=== PATIENT | female | born 1955 | race Caucasian/White ===

== ENCOUNTER 2020-04-25 09:56 | Day surgery (SDC) | payer MEDICARE ==
[~2020-04-25] VITALS: Ht 157.5 cm; Wt 77.1 kg
[2020-04-25 11:09] LABS: CALC OSMOLALITY 278 mosm/kg (275-300); CALCIUM 8.8 mg/dL (8.5-10.1); CARBON DIOXIDE 28.8 mmol/L (21.0-32.0); CHLORIDE - SERUM 104 mmol/L (98-107); CREATININE - SERUM 0.8 mg/dL (0.6-1.3); GLUCOSE 93 mg/dL (74-106); POTASSIUM - SERUM 3.9 mmol/L (3.5-5.1); SODIUM 140 mmol/L (136-145); UREA NITROGEN 12 mg/dL (7-18); eGFR NON AFRICAN AMERICAN 77 mL/min (90-120)
[2020-04-25 11:39] LABS: HEMATOCRIT 38.9 % (36.0-48.0); HEMOGLOBIN 12.8 g/dL (12-16); LYMPHOCYTES 31.4 % (15-50); MCH 31.6 pg (26.0-34.0); MCHC 32.9 g/dL (31.0-37.0); MEAN PLATELET VOLUME 8.4 fL (7.4-10.4); PLATELET COUNT 160 10x3/uL (130-400); RBC 4.05 10x6/uL (4.00-5.40); RDW 12.3 % (11.5-14.5); WBC 5.3 10x3/uL (4.8-10.8)
[2020-04-25] MEDS ORDERED: VICTOZA0.6 MG/0.1 SQ (12:37)
[2020-04-25 12:49] VITALS: BP 136/77; Ht 157.5 cm; Wt 77.1 kg
--- NOTE | 2020-04-25 18:23 | NUR ---
SURGERY TO BE RE-SCHEDULED AT A LATER TIME BECAUSE PT WISHES TO GO HOME SINCE SUGERY HAS BEEN DELAYED 7 HOURS NOW. IV D/C'D WITH CANNULA INTACT, AND PRESSURE HELD AND DRSG PLACED
== END 2020-04-25 18:25 | disposition home or self-care (01) ==
LOC: D.OPS 09:56
PROVIDERS: Anesthesiology; ATTEND Orthopaedic Surgery
DX: M25.532 Pain in left wrist (principal); S52.512A Displaced fracture of left radial styloid process, initial encounter for closed fracture; X58.XXXA Exposure to other specified factors, initial encounter; Z53.29 Procedure and treatment not carried out because of patient's decision for other reasons

== ENCOUNTER 2020-05-02 07:25 | Day surgery (SDC) | payer MEDICARE ==
[~2020-05-02] VITALS: Ht 157.5 cm; Wt 77.1 kg
[~2020-05-02 07:25] MED LIST: VICTOZA0.6 MG/0.1 SQ
[2020-05-02 08:19] LABS: HEMATOCRIT 40.3 % (36.0-48.0); HEMOGLOBIN 13.4 g/dL (12-16); MCH 31.7 pg (26.0-34.0); MCHC 33.3 g/dL (31.0-37.0); MCV 95.3 fL (80.0-100.0); MEAN PLATELET VOLUME 8.1 fL (7.4-10.4); RBC 4.23 10x6/uL (4.00-5.40); RDW 12.5 % (11.5-14.5); WBC 4.5 10x3/uL (4.8-10.8)
[2020-05-02 08:22] LABS: CALC OSMOLALITY 277 mosm/kg (275-300); CALCIUM 9.3 mg/dL (8.5-10.1); CARBON DIOXIDE 27.7 mmol/L (21.0-32.0); CHLORIDE - SERUM 105 mmol/L (98-107); CREATININE - SERUM 0.7 mg/dL (0.6-1.3); GLUCOSE 94 mg/dL (74-106); POTASSIUM - SERUM 3.8 mmol/L (3.5-5.1); SODIUM 139 mmol/L (136-145); UREA NITROGEN 13 mg/dL (7-18); eGFR NON AFRICAN AMERICAN 90 mL/min (90-120)
[2020-05-02] MEDS ORDERED: HYDROCODONE-AC1 EAC2 PO (09:35)
[2020-05-02 09:36] VITALS: Ht 157.5 cm; Wt 77.1 kg
--- NOTE | 2020-05-02 15:16 | NUR ---
1350 IV DC'D. CATHETER TIP INTACT. NO BLEEDING AT SITE. BANDAID APPLIED. 1402 PT IS DRESSED AND READY FOR DISCHARGE HOME. PT VOICES UNDERSTANDING OF THE DISCHARGE INSTRUCTIONS.
--- NOTE | 2020-05-06 21:31 | OP ---
PATIENT NAME: GAYLE MANN MEDICAL RECORD: [id number] :57 LOCATION:[facility] ADMISSION DATE: SURGEON: AGNES SANCHEZ MD DATE OF OPERATION: 05/02/2020 PREOPERATIVE DIAGNOSIS: Left distal radius fracture. POSTOPERATIVE DIAGNOSIS: Left distal radius fracture. PROCEDURE PERFORMED: ORIF of left distal radius (extraarticular). INDICATIONS FOR THE PROCEDURE: Ms. Mann is a 64-year-old female who fell approximately 1 week ago and injured her left wrist. She has extraarticular fracture of the distal radius with dorsal angulation. I talked with her about the injury and options for conservative versus surgical management. She has elected to proceed with surgery for ORIF of the distal radius. Risks, benefits and alternatives of surgery were discussed with the patient and consent was obtained. DESCRIPTION OF PROCEDURE: The patient was met in the holding area where her identity and confirmation of procedure was performed. Left upper extremity was marked. She was taken to the operating room where she was placed supine on the operating table and anesthesia was administered. Tourniquet was applied to the left arm and left arm was prepped and draped in a sterile fashion. The patient received preoperative antibiotics and timeout was performed before initiating the case. On initiation of the case, the arm was exsanguinated and the tourniquet was raised. Total tourniquet time was 26 minutes. A volar Bubba approach was utilized for exposure. We incised through the skin and subcutaneous tissues, dissected down to the flexor carpi radialis tendon. Tendon was retracted radially. We continued to do our dissection through the fascia into the deep posterior compartment. The distal radius was identified and our retractor was placed deep to allow for full visualization. The pronator quadratus was then released along its radial insertion and the pronator teres was lifted off the distal radius at its distal extent. The distal radius was exposed using a de santiago elevator. Fracture was identified and was able to be reduced easily. A 3-hole narrow [employer] plate was then positioned over the distal radius and adjusted for its alignment. Once we were pleased with its position, the screw was placed through the oblong hole of the plate and we then placed a K-wire through the distal end of the plate as we were holding the fracture reduced. We were pleased with this positioning. We then began placing screws through the proximal row of the plate. The screw was placed centrally, partially threaded locking screw and this provided good reapproximation of our fracture. We then placed 3 more locking pegs in the proximal row of the plate to complete our fixation. The other drill guides were removed. Two more cortical screws were placed through the shaft of the plate. This completed our fixation of the distal radius. The final images were obtained, which showed good alignment and fixation of the distal radius. Wounds were irrigated thoroughly with saline. Pronator quadratus tendon was repaired with Vicryl suture. Tourniquet was let down. Hemostasis was obtained. Subcutaneous tissues were then closed with Vicryl and the skin was closed with nylon. A sterile dressing was placed. The patient was placed into a volar splint turned back over to anesthesia where she was awakened, extubated, and taken to recovery room in stable condition. POSTOPERATIVE PLAN: The patient is going to return home with her family today. OPERATIVE REPORT [id number] GAYLE MANN She may move her fingers, but does not need to put any weight on that arm and no lifting more than 1 pound. We will plan to see her back in clinic in 2 weeks. COMPLICATIONS: None. ESTIMATED BLOOD LOSS: 10 mL. ANESTHESIA: General with peripheral nerve block. TRANSINT:[id number] Voice Confirmation ID: [id number] DOCUMENT ID: [id number] AGNES SANCHEZ MD at 2131 CC: [id number] DICTATION DATE: 05/02/20 1229 ENVIRONMENTAL WEB CRAWLER: 05/02/20 1339 [facility] 05/02/20 [id number] [place] [address]
== END 2020-05-02 14:02 | disposition home or self-care (01) ==
LOC: D.OPS 07:25
PROVIDERS: Anesthesiology; ATTEND Orthopaedic Surgery
DX: S52.552A Other extraarticular fracture of lower end of left radius, initial encounter for closed fracture (principal); X58.XXXA Exposure to other specified factors, initial encounter; M25.532 Pain in left wrist